=== PATIENT | male | born 1955 | race Caucasian/White ===

== ENCOUNTER 2023-02-14 15:57 | Outpatient (CLI) | payer MEDICARE, BC ==
[2023-02-14 16:18] LABS: TOTAL HEMOGLOBIN 11.9 G/dl (14.0-17.9)
== END 2023-02-14 23:59 | disposition home or self-care (01) ==
LOC: RT 15:57
PROVIDERS: ATTEND Internal Medicine
DX: R06.02 Shortness of breath (principal); D64.9 Anemia, unspecified
CPT/HCPCS: 85018; 94010; 94727; 94729

== ENCOUNTER 2023-11-21 12:14 | Day surgery (SDC) | payer MEDICARE, BC ==
[2023-11-21] VITALS (12 sets, daily range): BP systolic 114–140; BP diastolic 67–85; PULSE 60–65; RESP 12–16; TEMP 98; O2SAT 91–99
[~2023-11-21] VITALS: Ht 182.9 cm; Wt 85.0 kg
[2023-11-21] MEDS: cefazolin 2gm/D5W 100mL 100 ML IV ONE (11:29)
[~2023-11-21 12:14] MED LIST: AMLO5TAB16 PO; ATOR10TA70 PO; ESCI-8 PO; FLO0.4C PO; ringers solution, lacted 1,000 ML IV SCH
[2023-11-21 13:31] LABS: BASOPHILS # (AUTO) 0.1 X10'3 (0-0.2); EOSINOPHILS # (AUTO) 0.2 X10'3 (0-0.9); EOSINOPHILS % (AUTO) 1.8 % (0-6); LYMPHOCYTES # (AUTO) 1.8 X10'3 (1.1-4.8); LYMPHOCYTES % (AUTO) 19.5 % (21-51); MEAN CORPUSCULAR HEMOGLOBIN 31.5 PG (27.0-31.0); MEAN CORPUSCULAR HGB CONC 34.4 g/dL (33.0-36.5); MEAN CORPUSCULAR VOLUME 91.5 FL (78-98); MEAN PLATELET VOLUME 8.7 FL (7.4-10.4); MONOCYTES % (AUTO) 10.8 % (2-12); NEUTROPHILS # (AUTO) 6.3 X10'3 (1.8-7.7); NEUTROPHILS % (AUTO) 66.9 % (42-75); PRE OP HEMATOCRIT 41.8 % (42.0-52.0); PRE OP HEMOGLOBIN 14.4 g/dL (14.0-17.9); PRE OP PLATELET COUNT 257 X10'3 (140-440); PRE OP WHITE BLOOD COUNT 9.5 10'3 (4.8-10.8); RED BLOOD COUNT 4.57 X10'6 (4.70-6.10); RED CELL DISTRIBUTION WIDTH 13.7 % (11.5-14.5)
[2023-11-21] MEDS ORDERED: ondansetron/PF 4mg/2ml inj IV PRN (13:45)
[2023-11-21] MEDS ORDERED: proCHLORperazine 10 MG/2 ml inj IV PRN (13:45)
[2023-11-21] MEDS ORDERED: morphine 2 MG/ML inj. syringe IV PRN (13:45)
[2023-11-21] MEDS ORDERED: meperidine/PF 25mg/ml syringe IV PRN ×3 (13:45)
[2023-11-21] MEDS ORDERED: labetalol 20mg/4ml (5mg/ml) syringe IV PRN (13:45)
[2023-11-21] MEDS ORDERED: ringers solution, lacted 1,000 ML IV SCH (13:45)
[2023-11-21] MEDS ORDERED: enalaprilat dihydrate 2.5mg/2ml vial IV PRN (13:45)
[2023-11-21] MEDS ORDERED: morphine 4 MG/ML inj SYRINge IV PRN (13:45)
[2023-11-21 13:51] LABS: ALBUMIN 3.7 G/DL (3.4-5.0); ALBUMIN/GLOBULIN RATIO 1.2 (1.1-1.5); ALKALINE PHOSPHATASE 74 IU/L (46-116); BLOOD UREA NITROGEN 16 MG/DL (7-18); BUN/CREATININE RATIO 14.7 (10.0-20.0); CALCIUM 8.9 MG/DL (8.5-10.1); CHLORIDE 103 MMOL/L (99-107); CREATININE 1.09 MG/DL (0.60-1.10); PRE OP ALT 38 U/L (30-65); PRE OP ANION GAP 8 (8-16); PRE OP AST 26 U/L (10-37); PRE OP BILIRUB, TOTAL 1.4 MG/DL (0.0-1.0); PRE OP GLUCOSE 96 MG/DL (70-104); PRE OP POTASSIUM 4.1 MMOL/L (3.4-5.1); PRE OP SODIUM 137 MMOL/L (135-145); TOTAL CARBON DIOXIDE 26.5 MMOL/L (24-32); TOTAL PROTEIN 6.7 G/DL (6.4-8.2); eCRCL 71 ML/MIN; eGFR 67 ML/MIN
[2023-11-21] MEDS: famotidine 20mg tablet PO ONE (14:40)
[2023-11-21] MEDS ORDERED: BUPIVAcaine 2.5mg/ml inj 50ml vial (contains preservative) ONE (15:11)
[2023-11-21] MEDS ORDERED: mupirocin 2% ointment 22GM ONE (15:16)
[2023-11-21] MEDS ORDERED: fentaNYL/PF 50MCG/1 ML 2ML syringe ONE (15:55)
[2023-11-21] MEDS ORDERED: MIDAZolam 1 MG/ML 5ML VIAL ONE (15:56)
[2023-11-21] MEDS ORDERED: ROPIVAcaine 0.5% (5mg/ml) 30ml vial ONE (15:57)
[2023-11-21] MEDS ORDERED: propofol inj 20 ML IV ONE ×2 (16:01→17:47)
[2023-11-21] MEDS ORDERED: LIDOcaine 1%/PF 5ML 10 MG/ML VIAL ONE (16:01)
[2023-11-21] MEDS ORDERED: sevoflurane 250ml liquid IH ONE (16:15)
[2023-11-21] MEDS ORDERED: dexamethasone sod phosphate 4mg/ml inj. ONE (17:48)
[2023-11-21] MEDS ORDERED: ondansetron/PF 4mg/2ml inj ONE (17:48)
== END 2023-11-21 19:35 | disposition home or self-care (01) ==
LOC: PAS 12:14
PROVIDERS: ATTEND Podiatrist Foot & Ankle Surgery
DX: S82.831A Other fracture of upper and lower end of right fibula, initial encounter for closed fracture (principal); G89.18 Other acute postprocedural pain; Z87.891 Personal history of nicotine dependence; Z79.82 Long term (current) use of aspirin; Z79.899 Other long term (current) drug therapy; Z98.890 Other specified postprocedural states; Z80.1 Family history of malignant neoplasm of trachea, bronchus and lung; X58.XXXA Exposure to other specified factors, initial encounter; Y93.89 Activity, other specified; Y92.89 Other specified places as the place of occurrence of the external cause; Y99.8 Other external cause status
CPT/HCPCS: 27792; 36415; 64450; 73600; 76942; 80053; 85025; A4618; A6223; A6253; A6402; A6449; A7000; C1713; J0690; J1100; J2250; J2405; J2704; J2795; J3010; J3490; J7030; J7120; Z7506; Z7508; Z7512; Z7610; A4615